=== PATIENT | male | born 1980 | race African-American/Black ===

== ENCOUNTER 2021-01-13 21:46 | Emergency (ER) | payer OTHER ==
[~2021-01-13] VITALS: Ht 177.8 cm; Wt 109.0 kg
[2021-01-13] MEDS ORDERED: KEPPRA100 MG/ML PO (22:32)
[2021-01-13 22:59] LABS: HEMATOCRIT 47.7 % (39.0-50.0); HEMOGLOBIN 15.6 g/dl (14.0-18.0); IMMATURE GRANULOCYTES 0.3 % (0.0-5.0); MEAN CELL VOLUME 97.1 fL CALC (80.0-100.0); MEAN CORPUSCULAR HGB 31.8 pG CALC (26.0-32.0); MEAN CORPUSCULAR HGB CONC 32.7 g/dL CAL (32.0-36.0); NEUT# 4.38 thou/uL (1.82-7.42); RED BLOOD COUNT 4.91 mill/uL (4.70-6.10); RED CELL DISTRI WIDTH 11.9 % (11.5-15.5)
[2021-01-13 23:10] LABS: ALBUMIN 4.8 g/dL (3.2-5.0); ALKALINE PHOSPHATASE 79 u/l (38-126); ANION GAP 21 (6-22 (CALC)); BILIRUBIN, TOTAL 1.1 mg/dL (0.0-1.4); BUN 19 mg/dL (9-20); BUN/CREATININE RATIO 12 (12-20 (CALC)); CARBON DIOXIDE 19 mmol/l (22-30); CHLORIDE 101 mmol/l (95-108); CREATININE 1.6 mg/dL (0.7-1.3); GFR 48 ML/MIN (>=60 (CALC)); GFR FOR AFR.AMER. 59 ML/MIN (>=60 (CALC)); POTASSIUM 3.6 mmol/l (3.5-5.1); SGOT/AST 30 u/l (17-59); SODIUM 137 mmol/l (137-146); TOTAL PROTEIN 9.3 g/dL (6.3-8.2)
[2021-01-14 00:50] VITALS: BP 130/85
== END 2021-01-14 00:55 | DRG 101 ==
LOC: ED 21:46
PROVIDERS: Emergency Medicine
DX: G40.909 Epilepsy, unspecified, not intractable, without status epilepticus (principal); T42.76XA Underdosing of unspecified antiepileptic and sedative-hypnotic drugs, initial encounter; Z91.128 Patient's intentional underdosing of medication regimen for other reason

== ENCOUNTER 2021-10-12 11:06 | Inpatient (IN) | payer OTHER ==
[~2021-10-12] VITALS: Ht 180.3 cm; Wt 100.6 kg
[~2021-10-12 11:06] MED LIST: LEVETIRACETAM500 MG PO
--- NOTE | 2021-10-12 11:06 | NUR ---
PT TO ROOM VIA EMS FROM [facility] ACCOMPANIED BY GUARDS.
--- NOTE | 2021-10-12 11:24 | NUR ---
PT IN STRETCHER WITH SEIZURE PADS ON RAILS. IN NO DISTRESS AT THIS TIME. PT IS DROWSY BUT AROUSABLE. VITALS STABLE.
[2021-10-12 11:37] LABS: HEMATOCRIT 42.9 % (39.0-50.0); HEMOGLOBIN 14.4 g/dl (14.0-18.0); IMMATURE GRANULOCYTES 0.2 % (0.0-5.0); MEAN CELL VOLUME 94.7 fL CALC (80.0-100.0); MEAN CORPUSCULAR HGB 31.8 pG CALC (26.0-32.0); MEAN CORPUSCULAR HGB CONC 33.6 g/dL CAL (32.0-36.0); NEUT# 2.32 thou/uL (1.82-7.42); RED BLOOD COUNT 4.53 mill/uL (4.70-6.10); RED CELL DISTRI WIDTH 11.6 % (11.5-15.5)
[2021-10-12 11:41] LABS: URINE BILIRUBIN - DIPSTICK NEGATIVE (NEGATIVE); URINE BLOOD DIPSTICK NEGATIVE (NEGATIVE); URINE COLOR YELLOW; URINE GLUCOSE - DIPSTICK NEGATIVE (NEGATIVE); URINE KETONE 15 mg/dL (NEGATIVE); URINE LEUK ESTERASE NEGATIVE (NEGATIVE); URINE SPECIFIC GRAVITY >=1.030; URINE UROBILINOGEN - DIPSTICK 0.2 E.U./dL (0.2)
[2021-10-12 11:42] LABS: URINE NITRITE - DIPSTICK NEGATIVE (Negative)
[2021-10-12 11:44] LABS: URINE PROTEIN - DIPSTICK NEGATIVE (NEG-TRACE)
[2021-10-12 11:53] LABS: ALBUMIN 4.5 g/dL (3.2-5.0); ALKALINE PHOSPHATASE 77 u/l (38-126); ANION GAP 14 (6-22 (CALC)); BUN 13 mg/dL (9-20); BUN/CREATININE RATIO 12 (12-20 (CALC)); CARBON DIOXIDE 22 mmol/l (22-30); CHLORIDE 107 mmol/l (95-108); CREATININE 1.1 mg/dL (0.7-1.3); ETHYL ALCOHOL 0 mg/dl (0-30); GFR > 60 ML/MIN (>=60 (CALC)); GFR FOR AFR.AMER. > 60 ML/MIN (>=60 (CALC)); LIPASE 34 u/l (23-300); POTASSIUM 3.8 mmol/l (3.5-5.1); SGOT/AST 29 u/l (17-59); SODIUM 140 mmol/l (137-146); TOTAL PROTEIN 8.6 g/dL (6.3-8.2)
[2021-10-12 12:01] LABS: BILIRUBIN, TOTAL 0.6 mg/dL (0.0-1.4)
--- NOTE | 2021-10-12 12:08 | NUR ---
Reassessment of patient completed. No distress noted.
[2021-10-12 15:52] VITALS: BP 135/83
--- NOTE | 2021-10-12 16:00 | NUR ---
TO FLOOR VIA STRETCHER.
--- NOTE | 2021-10-12 16:10 | NUR ---
RECEIVE REPORT FROM ER NURSE DEBORAH. PATIENT ALERT AND ORIENTED X3. NO DEFICIT AT THIS TIME. PATIENT IS EDUCATES ABOUT MEDICATIONS, ADMISSION AND NURSING PLAN. PATIENT REFER UNDERSTAND.
[2021-10-12 19:05] VITALS: BP 125/69
--- NOTE | 2021-10-12 20:00 | NUR ---
PATIENT RESTING IN BED. ALERT AND ORIENTED. ABLE TO MAKE NEEDS KNOWN. TWO GUARDS IN ROOM AT BEDSIDE. SHACKLES TO BILATERAL ANKLES PRESENT TO FOOT OF BED. GOOD CIRCULATION PRESENT. ASSESSMENT COMPLETE. NO SIGNS OF DISTRESS NOTED. NO COMPLAINTS OF PAIN. NO SIGNS OF SEIZURE ACTIVITY OBSERVED. BED RAILS REMAIN PADDED FOR PATIENT SAFETY. CALL SUTTON IN REACH. BED IN LOW POSITION.
--- NOTE | 2021-10-12 21:04 | NUR ---
RECEIVED ALL SCHEDULED MEDICATIONS WITHOUT DIFFICULTY.
--- NOTE | 2021-10-12 23:57 | NUR ---
FEMALE GUARD STATED, ''I FORGOT TO MENTION TO THE OTHER NURSE AT CHANGE OF SHIFT THAT HE WAS HARD TO WAKE UP AND HIS EYES LOOKED ROLLED''. WHEN I ASSESSED PATIENT ON MY ASSESSMENT BEGINNING OF MY SHIFT, I OBSERVED NO SIGNS OF SEIZURE ACTIVITY AND PATIENT HAD NO COMPLAINTS. WILL RELAY TO DAY SHIFT NURSE SHE WILL BE BACK IN AM.
--- NOTE | 2021-10-12 23:57 | NUR ---
SHACKLED CHECKED WELL TO PATIENTS ANKLES AND ADJUSTED TO KEEP SKIN FREE FROM SORES AND IRRITATION.
[2021-10-13] VITALS (59 sets, daily range): BP systolic 92–149; BP diastolic 52–96
--- NOTE | 2021-10-13 00:49 | NUR ---
DATA TECHNICAL LEAD CHANGED PATIENTS SOCKS TO PUT LONGER SOCKS ON PATIENT TO HELP PROTECT SKIN FROM SHACKLES TO HELP REDUCE SKIN FROM BREAKING DOWN. CIRCULATION APPEARS ADEQUATE. PATIENT DID COMPLAIN OF A HEADACHE. PRN TYLENOL PROVIDED. NO SIGNS OF SEIZURE ACTIVITY NOTED. CALL SUTTON IN REACH. TWO GUARDS REMAIN IN ROOM WITH PATIENT. SHACKLES REMAIN TO BILATERAL ANKLES.
--- NOTE | 2021-10-13 02:48 | NUR ---
NEW BAG OF IV FLUIDS HUNG. NO COMPLAINTS VOICED BY PATIENT. NO DISTRESS NOTED. TWO GUARDS REMAIN AT BEDSIDE IN ROOM. SHACKLES CHECKED TO BILATERAL ANKLES. GOOD CIRCULATION TO BILATERAL ANKLES. CALL LIGHT REMAINS IN REACH.
--- NOTE | 2021-10-13 02:48 | NUR ---
NO BAG OF IV FLUIDS HUNG. NO COMPLAINTS VOICED BY PATIENT. NO DISTRESS NOTED. TWO GUARDS REMAIN AT BEDSIDE IN ROOM. SHACKLED CHECKED TO BILATERAL ANKLE. GOOD CICRCULATION TO BILATERAL ANKLES. CALL LIGHT REMAINS IN REACH.
--- NOTE | 2021-10-13 04:17 | NUR ---
PATIENT RESTING IN BED. NO COMPLAINTS VOICED AT THIS TIME. PATIENT VERY PLEASANT. NO SEIZURE ACTIVITY OBSERVED. GUARDS X2 REMAIN IN ROOM. SHACKLES CHECKED TO BILATERAL ANKLES. SKIN CHECKED WELL. CIRCULATION GOOD.
--- NOTE | 2021-10-13 04:31 | NUR ---
2 NEW GUARDS JUST ARRIVED TO SWITCH OUT WITH THE 2 CURRENT GUARDS THAT ARE IN THE ROOM CURRENTLY WITH THE PATIENT.
[2021-10-13 05:21] LABS: HEMATOCRIT 40.8 % (39.0-50.0); HEMOGLOBIN 13.5 g/dl (14.0-18.0); MEAN CELL VOLUME 96.9 fL CALC (80.0-100.0); MEAN CORPUSCULAR HGB 32.1 pG CALC (26.0-32.0); MEAN CORPUSCULAR HGB CONC 33.1 g/dL CAL (32.0-36.0); RED BLOOD COUNT 4.21 mill/uL (4.70-6.10); RED CELL DISTRI WIDTH 11.7 % (11.5-15.5)
[2021-10-13 05:38] LABS: ALKALINE PHOSPHATASE 70 u/l (38-126); ANION GAP 11 (6-22 (CALC)); BUN 13 mg/dL (9-20); BUN/CREATININE RATIO 12 (12-20 (CALC)); CARBON DIOXIDE 25 mmol/l (22-30); CHLORIDE 108 mmol/l (95-108); CREATININE 1.1 mg/dL (0.7-1.3); GFR > 60 ML/MIN (>=60 (CALC)); GFR FOR AFR.AMER. > 60 ML/MIN (>=60 (CALC)); POTASSIUM 4.1 mmol/l (3.5-5.1); SGOT/AST 20 u/l (17-59); SODIUM 139 mmol/l (137-146)
[2021-10-13 05:46] LABS: ALBUMIN 3.5 g/dL (3.2-5.0); BILIRUBIN, TOTAL 0.3 mg/dL (0.0-1.4); TOTAL PROTEIN 6.7 g/dL (6.3-8.2)
--- NOTE | 2021-10-13 06:15 | NUR ---
PATIENT RESTING IN BED. SHACKLES REMAIN TO BILATERAL ANKLES. GOOD CIRCULATION. SKIN INTACT. NO COMPLAINTS OF PAIN. NO SEIZURE ACTIVITY NOTED. CALL LIGHT IN REACH. TWO GUARDS REMAIN IN ROOM WITH PATIENT.
--- NOTE | 2021-10-13 09:00 | NUR ---
GUARD MET NURSE IN HALLWAY CLOSE TO PT'S ROOM AND INFORMED PT WAS HAVING SEIZURE, ON PROMPT ASSESSMENT PT IN SUPINE POSITION IN BED WITH HEAD TURNED TO LEFT SIDE, TONGUE HANGING OUT OF MOUTH AND EYES CLOSED. HE DID NOT RESPOND TO VERBAL OR TACTILE STIMULI AND NURSE SENT STAFF TO CALL [facility] STAT WHILE SHE STAYED WITH PT. TEAM ARRIVED IN SECONDS AND BEGAN TREATMENT, PT WAS THEN TRANSFERRED TO ICU BED-1 AFTER HE STARTED TO RESPOND TO TREATMENT. PT REMAINS IN ICU FOR CLOSER MONITORING.
--- NOTE | 2021-10-13 09:25 | NUR ---
PT BROUGHT TO ICU BED 1 AFTER [facility] TEAM CALLED TO ROOM WHERE PT WAS HAVING A SEIZURE. ACCORDING TO MED SURG NURSE, PT HAS A HX OF SEIZURES AND HAD BEEN HAVING THEM ALL DAY YESTERDAY. SEIZURE PADS IN PLACE , FLUIDS INFUSING WITH KEPPRA DRIP, PT HAD BEEN GIVEN 4 MG OF ATIVAN IV BEFORE TRANSFERRED TO ICU. UPON ARRIVAL TO ICU WITH 2 GUARDS, PTS VITAL SIGNS STABLE, NO ACTIVE SEIZURES AT THIS TIME,
--- NOTE | 2021-10-13 10:00 | NUR ---
TELENEUROLOGIST DID CONSULT VIA CART 2, SUGGESTED AN MRI AN EEG IF PT DOES NOT RETURN TO NORMAL STATUS IN A FEW HOURS.
--- NOTE | 2021-10-13 10:41 | NUR ---
PT STILL REMAINS IN DROWSY SEDATED STATES FROM 4 MG OF ATIVAN. WILL WAIT PER TELENEUROLOGIST REPORT FOR SEVERAL HOURS TIL ATIVAN BEGINS WEARING OFF TO OBSERVE IF HE RETURNS TO NORMAL STATES BEFORE SEIZURE. PT WILL WITHDRAW FROM PAIN, WILL OPEN EYES WITH VERBAL. GUARDS REMAIN AT BEDSIDE, AND VITAL SIGNS REMAIN STABLE
--- NOTE | 2021-10-13 11:11 | NUR ---
DILANTIN INFUSING PER ORDER. PT WAKING UP WHILE TALKING TO GUARDS. RESPONDING WELL FOR RIGHT AFTER SEDATION. VITAL SIGNS STABLE. SPOKE WITH NURSE AT FACILITY PT COMES FROM AND GAVE HER AN UPDATE OF WHAT WAS HAPPENING WITH PT. ADVISED WILL NOTIFY OF ANY CHANGES.
--- NOTE | 2021-10-13 11:34 | NUR ---
PT STARTING TO COME AWAKE AND TALKING, ASKED FOR A URINAL. ABLE TO MAEW. VITAL SIGNS STABLE.
--- NOTE | 2021-10-13 12:54 | NUR ---
ADVISED PT THAT WE WOULD GIVE HIM A MEAL TRAY AFTER HE HAD COMPLETELY WOKEN UP SO WE KNOW THAT HE CAN SWALLOW THE FOOD WITHOUT CHOKING. PT AWAKENS AND TALKS , USING URINAL, THEN WILL FALL IMMEDIATELY BACK TO SLEEP. VITAL SIGNS STABLE. GUARDS REMAIN AT BEDSIDE, WITH FOOT SHACKLED.
--- NOTE | 2021-10-13 16:31 | NUR ---
PT AWAKE AND WATCHING TV, HAS URINATED APPROX 1200 OUT. ALERT/ORIENTED, NO SEIZURE ACTIVITY NOTED. VITAL SIGNS STABLE.
--- NOTE | 2021-10-13 17:55 | NUR ---
teleneurology on [facility] cart 2, pt states he has less sensation on lower left leg since yesterday. states doesnt think he remembers telling anyone that since arrival
--- NOTE | 2021-10-13 17:58 | NUR ---
mri of head recommended and will follow up as consult tomorrow. pt ate approx 100% of dinner tray, has not had any seizure activity since arrival on icu unit, alert/oriented x3
--- NOTE | 2021-10-13 20:00 | NUR ---
recieved patient in bed resting comfotably. no s/s of distress .denies any pain. vital sign stable.
[2021-10-14] VITALS (54 sets, daily range): BP systolic 76–138; BP diastolic 47–90
--- NOTE | 2021-10-14 03:26 | NUR ---
PATIENT AWAKE, DENIES ANY PAIN OR DISCOMFORT.
[2021-10-14 04:27] LABS: HEMATOCRIT 39.7 % (39.0-50.0); HEMOGLOBIN 13.1 g/dl (14.0-18.0); MEAN CORPUSCULAR HGB 32.3 pG CALC (26.0-32.0); RED BLOOD COUNT 4.05 mill/uL (4.70-6.10); RED CELL DISTRI WIDTH 11.8 % (11.5-15.5)
[2021-10-14 04:42] LABS: BUN 11 mg/dL (9-20); BUN/CREATININE RATIO 9 (12-20 (CALC)); CARBON DIOXIDE 26 mmol/l (22-30); CHLORIDE 108 mmol/l (95-108); CREATININE 1.1 mg/dL (0.7-1.3); GFR > 60 ML/MIN (>=60 (CALC)); GFR FOR AFR.AMER. > 60 ML/MIN (>=60 (CALC)); MAGNESIUM 1.8 mg/dL (1.6-2.3); PHENYTOIN (DILANTIN) 11 ug/mL (10 - 20); SODIUM 141 mmol/l (137-146)
[2021-10-14 04:43] LABS: ANION GAP 11 (6-22 (CALC)); POTASSIUM 3.9 mmol/l (3.5-5.1)
--- NOTE | 2021-10-14 06:56 | NUR ---
PT REPORT RECEIVED FROM CANE PILER. NO CHANGE THRU OUT THE NIGHT, VITAL SIGNS STABLE, NO SEIZURE ACTIVITY, PT MAEW. GUARDS REMAIN AT BEDDSIDE.
--- NOTE | 2021-10-14 07:45 | NUR ---
pt placed in w/c in preparation for transfer to mri. walked with steady gait from bed to w/c, moniter placed beside pt in chair with blanket and mask in place.
--- NOTE | 2021-10-14 07:50 | NUR ---
PT DOWN TO MRI PER W/C PER ORDER.
--- NOTE | 2021-10-14 08:00 | NUR ---
MRI CALLED AND ASKED ABOUT ATIVAN STATUS. WILL TRY AND TALK PT THRU BUT IS HAVING A HARD TIME LAYING STILL
--- NOTE | 2021-10-14 09:09 | NUR ---
pt eating late breakfast due to mri at this time. no seizure activity today, pt up to bathroom, walking on own.
--- NOTE | 2021-10-14 10:11 | NUR ---
guard notified staff that pt was having a small seizure, pt was shaking in upper part of body with rigidity, not alert at this time. ativan 1 mg given per order. within 1 min seizure has finished. remains drowsy, no incontinence, vital signs stable.
--- NOTE | 2021-10-14 12:03 | NUR ---
pt sitting up in bed eating lunch, no seizure activity at this time. states feels fine, maew, vital signs stable. talking and laughing with staff. nihs score a 0 at this time.
--- NOTE | 2021-10-14 13:05 | NUR ---
pt gave himself a bed bath, linens change,pt walked to bathroom with steady gait smiling and talking with staff no complaits
--- NOTE | 2021-10-14 13:49 | NUR ---
pt sleeping at this time, will wait to give ativan po until pt wakes up
--- NOTE | 2021-10-14 15:14 | NUR ---
NO NEW SEIZURE ACTIVITY SINCE THIS AM EPISODE. VITAL SIGNS STABLE. GUARDS REMAIN AT BEDSIDE. MAEW, CALL LIGHT WITHIN REACH. NO COMPLAINTS AT THIS TIME
--- NOTE | 2021-10-14 16:35 | NUR ---
waiting for neurologist to come on [facility] cart 2 to speak with pt. pt resting quietly on bed, no complaints at this time, will continue to moniter and reassess pt.
--- NOTE | 2021-10-14 18:28 | NUR ---
DR. HODGE NOTIFIED OF RECOMMENDATIONS OF DR. BEARD THE TELENEUROLOGIST. CHANGE ORDER OF KEPPRA TO 1500 MG BID, CHANGE ORDER OF DILANTIN TID TO 300 MG AT NIGHT TIME, CHANGE ATIVAN 1 MG IV PRN FOR SEIZURE ONLY FROM ATIVAN TID. DILANTIN LEVEL IN AM
--- NOTE | 2021-10-14 22:00 | NUR ---
PT RECEIVED 532 ML OF JEVITY NUTRITION VIA PEG TUBE. PRCODEURE WAS TOLERATED WELL. PT IS RESTING QUIETLY POSITIONED ON RIGHT SIDE WITH PILLOWS ON AN AIR MATRESS. LAMB IS SECURE AND FLOWING TO GRAVITY. WILL CONTINUE TO MONITOR.
--- NOTE | 2021-10-14 23:08 | NUR ---
patient resting in bed. c/o double vision after taking dilantin.MD will notify
[2021-10-15] VITALS (33 sets, daily range): BP systolic 65–128; BP diastolic 32–87
--- NOTE | 2021-10-15 01:15 | NUR ---
PATIENT SLEEPING. NO COMPLAIN OF PAIN.
[2021-10-15 05:35] LABS: HEMOGLOBIN 13.5 g/dl (14.0-18.0); MEAN CELL VOLUME 98.3 fL CALC (80.0-100.0); MEAN CORPUSCULAR HGB 32.4 pG CALC (26.0-32.0); MEAN CORPUSCULAR HGB CONC 32.9 g/dL CAL (32.0-36.0); RED BLOOD COUNT 4.17 mill/uL (4.70-6.10); RED CELL DISTRI WIDTH 11.8 % (11.5-15.5)
[2021-10-15 05:55] LABS: BUN 10 mg/dL (9-20); BUN/CREATININE RATIO 8 (12-20 (CALC)); CARBON DIOXIDE 26 mmol/l (22-30); CHLORIDE 107 mmol/l (95-108); CREATININE 1.2 mg/dL (0.7-1.3); GFR > 60 ML/MIN (>=60 (CALC)); GFR FOR AFR.AMER. > 60 ML/MIN (>=60 (CALC)); MAGNESIUM 1.9 mg/dL (1.6-2.3); SODIUM 141 mmol/l (137-146)
[2021-10-15 05:57] LABS: ANION GAP 12 (6-22 (CALC))
--- NOTE | 2021-10-15 07:20 | NUR ---
pt resting in bed with eyes closed; no apparent distress noted; correctional officers x2 at bedside; pt easily arousable; admits to headache rating 8/10; no n/v noted; pt denies any vision problems; will medicate; resp even and unlabored; lungs clear; skin color wnl; ra; hr reg; strong pulses; no edema noted; sr on monitor; abd soft with bs present; no bm noted per rewriter; pt admits to bm last night; no urine to inspect at this time; pt admits to urinating without complication; #20 flushed and patent to lh; no redness or edema noted at site; plan of care/am meds explained; pt cuffed bilat le; pt requesting for "ultraound to check his kidneys "from the meds I'm on""; labs reviewed with pt; pt informed ultrasound of kidneys can be performed on outpt basis at the facility; no seizure activity noted; call light within reach; will continue to monitor
--- NOTE | 2021-10-15 08:26 | NUR ---
call placed to [facility] transfer center; information provided to Marylin regarding transfer; facesheet and covid results have been faxed; awaiting return call
--- NOTE | 2021-10-15 08:26 | NUR ---
pt noted with active seizure; mild tremors noted to lower extremities; posturing to upper extremities; body rigid; airway patent; seizure last approx 35-40 seconds; no urinary incont noted; pt postictal; will contiune to monitor
--- NOTE | 2021-10-15 08:35 | NUR ---
Dr Weinstein present at bedside to assess pt and discuss plan of care; pt remains postictal at this time
--- NOTE | 2021-10-15 09:04 | NUR ---
pt awake in bed conversing with [facility] staff; no apparent distress noted; iv intact and patent; pt alert and oriented; does not recall having a seizure; pt admits to having headaches, tasting fe and feeling hot prior to seizures; pt states hx of seizures since 14-15 years old; am meds explained and administered; plan to transfer explained; will continue to monitor
--- NOTE | 2021-10-15 10:00 | NUR ---
pt resting in bed with eyes closed; guards x2 at bedside; iv intact; sr on monitor; call light within reach; will continue to monitor
--- NOTE | 2021-10-15 12:00 | NUR ---
awake in bed eating dinner; no apparent distress noted; pt offers no complaints; iv intact; guards x2 at bedside; pt remains cuffed to bed; call light within reach; will continue to monitor
--- NOTE | 2021-10-15 12:36 | NUR ---
[facility] transfer center called; spoke with Marylin; pt accepted just awaiting bed assignment
--- NOTE | 2021-10-15 14:15 | NUR ---
awake in bed; no apparent distress noted; pt offers no complaints; nutrigrain bars and soda provided as per request; iv intact; sr on monitor; guards x2 at bedside; call light within reach; will continue to monitor
--- NOTE | 2021-10-15 15:55 | NUR ---
call received from Marylin at [facility] transfer center; bed assignment received; pt to transfer to neuro unit [id number]; report to be called to transfer line; accepting MD Dr Jennifer Martínez
--- NOTE | 2021-10-15 15:55 | NUR ---
pt discharge with WC transport in stable condition
--- NOTE | 2021-10-15 16:07 | NUR ---
call placed to [facility]; information provided; ETA 30 minutes
--- NOTE | 2021-10-15 16:20 | NUR ---
pt awake in bed; no apparent distress noted; pt additional seizure activity since this am; iv intact; guards x2 at bedside; sr on monitor; transfer explained/consent obtained; DOC staff informed of ETA; will continue to monitor
--- NOTE | 2021-10-15 16:45 | NUR ---
[facility] transport present on unit; report provided;
--- NOTE | 2021-10-15 16:57 | NUR ---
pt discharged with WC transport in stable
--- NOTE | 2021-10-15 17:12 | NUR ---
report called to neuro unit JAY[facility] Tee; direct number provided if additional information is needed;
== END 2021-10-15 16:57 | disposition short-term general hospital (02) | DRG 101 ==
LOC: ED 11:06 → ED-I 13:25 → ED 13:43 → MS2 13:44 → ICU 10-13 09:27
PROVIDERS: ADMIT Internal Medicine; ATTEND Internal Medicine
DX: G40.409 Other generalized epilepsy and epileptic syndromes, not intractable, without status epilepticus (principal); Z20.822 Contact with and (suspected) exposure to COVID-19
CPT/HCPCS: A9579; J1650; J1953; J2060

== ENCOUNTER 2022-02-14 09:47 | Emergency (ER) | payer OTHER ==
[~2022-02-14] VITALS: Ht 180.3 cm; Wt 113.0 kg
[2022-02-14] VITALS (10 sets, daily range): BP systolic 105–126; BP diastolic 75–93
[2022-02-14 10:09] LABS: HEMATOCRIT 42.2 % (39.0-50.0); HEMOGLOBIN 14.2 g/dl (14.0-18.0); IMMATURE GRANULOCYTES 0.3 % (0.0-5.0); MEAN CELL VOLUME 94.8 fL CALC (80.0-100.0); MEAN CORPUSCULAR HGB 31.9 pG CALC (26.0-32.0); MEAN CORPUSCULAR HGB CONC 33.6 g/dL CAL (32.0-36.0); NEUT# 1.98 thou/uL (1.82-7.42); RED BLOOD COUNT 4.45 mill/uL (4.70-6.10); RED CELL DISTRI WIDTH 11.8 % (11.5-15.5)
[2022-02-14 10:30] LABS: ALKALINE PHOSPHATASE 68 u/l (38-126); ANION GAP 13 (6-22 (CALC)); BUN 14 mg/dL (9-20); BUN/CREATININE RATIO 12 (12-20 (CALC)); CARBON DIOXIDE 22 mmol/l (22-30); CHLORIDE 107 mmol/l (95-108); CREATININE 1.1 mg/dL (0.7-1.3); GFR FOR AFR.AMER. > 60 ML/MIN (>=60 (CALC)); GFR OTHER RACES > 60 ML/MIN (>=60 (CALC)); POTASSIUM 3.9 mmol/l (3.5-5.1); SGOT/AST 30 u/l (17-59); SODIUM 138 mmol/l (137-146)
[2022-02-14 10:34] LABS: ALBUMIN 4.4 g/dL (3.2-5.0); BILIRUBIN, TOTAL 0.8 mg/dL (0.0-1.4); TOTAL PROTEIN 8.3 g/dL (6.3-8.2)
== END 2022-02-14 17:16 | disposition short-term general hospital (02) | DRG 101 ==
LOC: ED 09:47
PROVIDERS: Family Medicine
DX: G40.901 Epilepsy, unspecified, not intractable, with status epilepticus (principal); Z20.822 Contact with and (suspected) exposure to COVID-19
CPT/HCPCS: J1953